=== PATIENT | female | born 1980 | race Caucasian/White ===

== ENCOUNTER 2017-09-17 20:22 | Emergency (ER) | payer OTHER ==
[2017-09-17 20:40] VITALS: BP 97/67
[2017-09-17] MEDS ORDERED: OXYCODONE/APAP 5/325MG PREPACK#4 BTL TAKEHOME ONE (21:07)
[2017-09-17] MEDS ORDERED: DEXAMETHASONE 4 MG TAB PO ONE (21:07)
--- NOTE | 2017-09-17 21:07 | EDPHY ---
General - History Smoking Status: Current some day smoker Time Seen by Provider: 09/17/17 20:51 Narrative: CHIEF COMPLAINT: Sore throat x5 days HISTORY OF PRESENT ILLNESS: Patient presents with complaints of sore throat. This started 5 days ago. It is worse on the left at this time. It was mild at 1st now severe. Difficulty eating or drinking anything with this. Much more severe when she attempts to eat or drink. She has no fever. No headache. No neck pain or stiffness. No trauma or injury. She has tried no medications for this. She has not been evaluated for this. She recently went to [employer] and just returned today. No other associated complaints or modifying factors. REVIEW OF SYSTEMS: Ten systems reviewed and are negative unless otherwise noted in the HPI PCP: None SPECIALISTS: None PAST MEDICAL HISTORY: Denies any ongoing medical diagnoses PAST SURGICAL HISTORY: No surgical history SOCIAL HISTORY: Occasional tobacco, alcohol drug use. Lives here independently. FAMILY HISTORY: Noncontributory EXAMINATION General Appearance: Alert, no distress. Well-developed well-nourished Head: normocephalic, atraumatic Eyes: Pupils equal and round, no conjunctival pallor or injection ENT, Mouth: Mucous membranes moist. Uvula is midline. There is bilateral tonsillar enlargement with erythema and exudate. There is no asymmetry of the tonsils. There is no trismus or deviation of the uvula. The airway is widely patent with no abnormality of the floor of the mouth. Neck: Midline trachea. Normal inspection, supple, non-tender. No meningismus or rigidity Respiratory: No retractions or distress. Neurological: A&O, nonfocal, normal gait Skin: Warm and dry, no rash no petechiae or purpura Extremities: Nontender, no pedal edema DIFFERENTIAL DIAGNOSES: Including but not limited to acute pharyngitis, strep pharyngitis, viral pharyngitis, tonsillitis, infectious mononucleosis, peritonsillar abscess, Ismael's angina MDM: 9:00 p.m. Acute pharyngitis and tonsillitis without any evidence of peritonsillar abscess or abnormality of the floor of the mouth. Her airway is erythematous but not edematous and widely patent. There is no trismus. Her neck is supple and without meningismus. Her vital signs are within normal limits. I will treat her with 1st dose of steroid and antibiotic here. She will be provided short course of pain medication for this. I prescribed antibiotics for remainder night days starting tomorrow. I provided the on-call primary care physician ENT physician to follow up outpatient. We discussed ED precautions for worsening symptoms, asymmetry of the tonsils, difficulty opening the mouth, fever, neck pain or stiffness. SUPERVISION: This patient was independently evaluated without direct involvement of or examination by the attending physician. (Jonathan Costello) Discussion: The patient was evaluated and managed by the Physician Neurophysiologist. My co- signature indicates that I have reviewed this chart and I agree with the findings and plan of care as documented. I am the secondary supervising physician. (Alethea Vance) - Objective Vital Signs: Initial Vital Signs Temperature (C) 37 C 09/17/17 20:35 Heart Rate 95 09/17/17 20:35 Respiratory Rate 18 09/17/17 20:35 Blood Pressure 97/67 L 09/17/17 20:35 O2 Sat (%) 97 09/17/17 20:35 O2 Delivery Mode Room Air Allergies/Adverse Reactions: No Known Allergies Allergy (Unverified 09/17/17 20:34) Home Medications: Medication Instructions Recorded Amoxicillin Trihydrate [Amoxil] 1,000 mg PO DAILY 9 Days cap 09/17/17 Dexamethasone [Decadron 4 MG (*)] 8 mg PO ONCE #2 tab 09/17/17 Medications Given: Discontinued Medications Amoxicillin (Amoxicillin) 1,000 mg PO EDNOW ONE PRN Reason: Protocol Stop: 09/17/17 21:08 Last Admin: 09/17/17 21:21 Dose: 1,000 mg Dexamethasone (Decadron) 8 mg PO EDNOW ONE Stop: 09/17/17 21:08 Last Admin: 09/17/17 21:21 Dose: 8 mg Oxycodone/Acetaminophen (Percocet 5/325mg Prepack#4) 1 btl TAKEHOME EDNOW ONE Stop: 09/17/17 21:08 Last Admin: 09/17/17 21:21 Dose: 1 btl Departure - Departure Disposition: Home, Routine, Self-Care Clinical Impression: Acute pharyngitis Qualifiers: Pharyngitis/tonsillitis etiology: unspecified etiology Qualified Code(s): J02.9 - Acute pharyngitis, unspecified Acute tonsillitis Qualifiers: Pharyngitis/tonsillitis etiology: unspecified etiology Qualified Code(s): J03.90 - Acute tonsillitis, unspecified Condition: Good Instructions: Oxycodone/Acetaminophen (By mouth), Dexamethasone (By mouth), Pharyngitis (ED), Tonsillitis (ED) Additional Instructions: 1. Increase fluid intake and clear liquids the next few days 2. Amoxicillin 1000 mg once daily for 9 further days starting Sunday 3. Decadron 8 mg 1 additional dose on Sunday 4. Percocet pain medication as prescribed as needed 5. ED precautions for worsening pain, difficulty opening her mouth, asymmetry of the tonsils, difficulty drinking water, fever, neck pain or stiffness 6. Follow up with the on-call primary care physician and ENT physicians as provided Referrals: Jesika Palmer MD [Medical Doctor] - As per Instructions Donato Haas MD [Medical Doctor] - As per Instructions Prescriptions: Amoxicillin Trihydrate [Amoxil] 1,000 mg PO DAILY 9 Days cap Dexamethasone [Decadron 4 MG (*)] 8 mg PO ONCE #2 tab
== END 2017-09-17 21:29 | disposition home or self-care (01) ==
DX: J03.90 Acute tonsillitis, unspecified (principal); F17.200 Nicotine dependence, unspecified, uncomplicated